=== PATIENT | male | born 1950 | race Caucasian/White ===

== ENCOUNTER 2016-11-21 14:36 | Emergency (ER) | payer OTHER ==
[2016-11-21] MEDS ORDERED: Aspirin Low Dose CHEW TAB* 81 MG PO ONE (15:45)
[2016-11-21 17:12] LABS: Hematocrit 42 % (42-52); Hemoglobin 14.3 g/dl (14.0-18.0); Mean Corpuscular HGB Conc 34 g/dl (31-36); Mean Corpuscular Hemoglobin 31 pg (27-31); Mean Corpuscular Volume 93 fL (80-94); Mean Platelet Volume 8 um3 (7.4-10.4); Red Blood Count 4.57 10^6/ul (4.0-5.4); Red Cell Distribution Width 14 % (10.5-15); White Blood Count 9.8 10^3/ul (3.5-10.8)
[2016-11-21 17:28] LABS: Albumin 4.1 g/dL (3.2-5.2); BUN/Creatinine Ratio 13.7 (8-20); Calcium 9.2 mg/dL (8.6-10.3); EGFR Non-African American 73.1 (>60); Globulin 3.2 g/dL (2-4); Total Bilirubin 0.5 mg/dL (0.2-1.0); Total Protein 7.3 g/dL (6.4-8.9)
[2016-11-21 17:30] LABS: Troponin I 0.01 ng/mL (<0.04)
[2016-11-21 17:34] LABS: Potassium 5.4 mmol/L (3.5-5.0)
--- NOTE | 2016-11-21 17:50 | RAD ---
Indication: Chest pain. Single frontal view of the chest performed at 1652 hours was reviewed. Comparison is made with previous exam dated August 05, 2008. No mediastinal shift is noted. Heart is of normal size and configuration. Lung vance appear clear. IMPRESSION: NO ACTIVE CARDIOPULMONARY DISEASE IS NOTED.
[2016-11-21 19:29] VITALS: BP 128/66
--- NOTE | 2016-11-23 17:29 | ED ---
Madeleine Lew Anna, scribed for Lloyd Gallegos MD on 11/21/16 at 1523 . HPI Chest Pain - HPI Summary HPI Summary: Patient is a 66 y/o male coming to [facility] presenting with intermittent chest pain that began ten days ago. He describes the pain as severity 3/10 and radiating to his left shoulder. He has additionally had intermittent SOB and lightheadedness. He climbs many sets of stairs at work and does evening chores in the barn. Last night after doing his chores, he felt SOB and as if his heart was racing. He felt fine yesterday morning. He has not had any pain related to eating. He is able to sleep at night. The pain is not exacerbated by anything in particular, including palpation. The symptoms were not alleviated by use of an antacid. He has noticed that his foot has fallen asleep more lately than normal. Denies diaphoresis, nausea, edema, neck pain. He denies a history of CAD. His history is significant for rupture of C6-C7, for which he had surgery and will sometimes experience arm numbness after hitting his head on a door. - History of Current Complaint Chief Complaint: EDChestPainROMI Time Seen by Provider: 11/21/16 15:13 Hx Obtained From: Patient Onset/Duration: Started Days Ago Timing: Intermittent Initial Severity: Moderate Current Severity: Moderate Pain Intensity: 3 Pain Scale Used: 0-10 Numeric Chest Pain Radiates To:: Shoulder - Allergy/Home Medications Allergies/Adverse Reactions: Allergies Allergy/AdvReac Type Severity Reaction Status Date / Time Dextromethorphan Allergy Unknown Unknown Verified 06/28/16 14:49 [From Mucinex DM] Reaction Details Guaifenesin [From Mucinex DM] Allergy Unknown Unknown Verified 06/28/16 14:49 Reaction Details Penicillins Allergy Unknown Unknown Verified 06/28/16 14:49 Reaction Details Yellow Dye [From Mucinex DM] Allergy Unknown Unknown Verified 06/28/16 14:49 Reaction Details Gluten Meal Allergy Unknown Verified 06/28/16 14:49 Reaction Details PMH/Surg Hx/FS Hx/Imm Hx Endocrine/Hematology History: Denies: Hx Diabetes Cardiovascular History: Denies: Hx Hypertension, Hx Pacemaker/ICD History: Denies: Hx Renal Disease Sensory History: Denies: Hx Contacts or Glasses, Hx Hearing Aid Opthamlomology History: Denies: Hx Contacts or Glasses Psychiatric History: Denies: Hx Panic Disorder - Surgical History Surgery Procedure, Year, and Place: RIGHT LEG MENISCUS 2009. RUPTURED C6-C7 1987. APPENDIX/TONSILS CHILD Infectious Disease History: No Infectious Disease History: Denies: Traveled Outside the [place] in Last 30 Days - Family History Known Family History: Positive: Other - [place] - Social History Occupation: Employed Full-time Lives: With Family Alcohol Use: Rare Substance Use Type: Reports: None Smoking Status (MU): Never Smoked Tobacco Review of Systems Positive: Palpitations, Chest Pain Positive: Shortness Of Breath Positive: Arthralgia - shoulder pain Neurological: Other - Dizziness Psychological: Normal All Other Systems Reviewed And Are Negative: Yes Physical Exam Triage Information Reviewed: Yes Vital Signs On Initial Exam: Initial Vitals Temp Pulse Resp BP Pulse Ox 98.6 F 73 20 131/85 100 11/21/16 14:38 11/21/16 14:38 11/21/16 14:38 11/21/16 14:38 11/21/16 14:38 Vital Signs Reviewed: Yes Appearance: Positive: Well-Appearing, No Pain Distress Skin: Positive: Warm, Skin Color Reflects Adequate Perfusion, Dry Head/Face: Positive: Normal Head/Face Inspection Eyes: Positive: Normal ENT: Positive: Normal ENT inspection Neck: Positive: Supple, Nontender Respiratory/Lung Sounds: Positive: Clear to Auscultation, Breath Sounds Present Cardiovascular: Positive: RRR Abdomen Description: Positive: Nontender, Soft Bowel Sounds: Positive: Present Musculoskeletal: Positive: Normal Neurological: Positive: Normal Psychiatric: Positive: Affect/Mood Appropriate Diagnostics - Vital Signs Vital Signs Temp Pulse Resp BP Pulse Ox 11/21/16 14:38 98.6 F 73 20 131/85 100 - Laboratory Lab Results: Lab Results 11/21/16 11/21/16 11/21/16 Range/Units 17:00 17:00 17:00 WBC 9.8 (3.5-10.8) 10^3/ul RBC 4.57 (4.0-5.4) 10^6/ul Hgb 14.3 (14.0-18.0) g/dl Hct 42 (42-52) % MCV 93 (80-94) fL MCH 31 (27-31) pg MCHC 34 (31-36) g/dl RDW 14 (10.5-15) % Plt Count 266 (150-450) 10^3/ul MPV 8 (7.4-10.4) um3 Neut % (Auto) 60.3 (38-83) % Lymph % (Auto) 25.9 (25-47) % [place] % (Auto) 8.1 (1-9) % Eos % (Auto) 4.6 (0-6) % Baso % (Auto) 1.1 (0-2) % Absolute Neuts (auto) 5.9 (1.5-7.7) 10^3/ul Absolute Lymphs (auto) 2.5 (1.0-4.8) 10^3/ul Absolute Monos (auto) 0.8 (0-0.8) 10^3/ul Absolute Eos (auto) 0.4 (0-0.6) 10^3/ul Absolute Basos (auto) 0.1 (0-0.2) 10^3/ul Absolute Nucleated RBC 0 10^3/ul Nucleated RBC % 0 Sodium 136 (133-145) mmol/L Potassium 5.4 H (3.5-5.0) mmol/L Chloride 105 (101-111) mmol/L Carbon Dioxide 27 (22-32) mmol/L Anion Gap 4 (2-11) mmol/L BUN 14 (6-24) mg/dL Creatinine 1.02 (0.67-1.17) mg/dL Est GFR ( Amer) 94.0 (>60) Est GFR (Non-Af Amer) 73.1 (>60) BUN/Creatinine Ratio 13.7 (8-20) Glucose 91 (70-100) mg/dL Lactic Acid 0.8 (0.5-2.0) mmol/L Calcium 9.2 (8.6-10.3) mg/dL Total Bilirubin 0.50 (0.2-1.0) mg/dL AST 51 H (13-39) U/L ALT 44 (7-52) U/L Alkaline Phosphatase 59 (34-104) U/L Troponin I 0.01 (<0.04) ng/mL Total Protein 7.3 (6.4-8.9) g/dL Albumin 4.1 (3.2-5.2) g/dL Globulin 3.2 (2-4) g/dL Albumin/Globulin Ratio 1.3 (1-3) 11/21/ Range/Units 18:45 WBC (3.5-10.8) 10^3/ul RBC (4.0-5.4) 10^6/ul Hgb (14.0-18.0) g/dl Hct (42-52) % MCV (80-94) fL MCH (27-31) pg MCHC (31-36) g/dl RDW (10.5-15) % Plt Count (150-450) 10^3/ul MPV (7.4-10.4) um3 Neut % (Auto) (38-83) % Lymph % (Auto) (25-47) % [place] % (Auto) (1-9) % Eos % (Auto) (0-6) % Baso % (Auto) (0-2) % Absolute Neuts (auto) (1.5-7.7) 10^3/ul Absolute Lymphs (auto) (1.0-4.8) 10^3/ul Absolute Monos (auto) (0-0.8) 10^3/ul Absolute Eos (auto) (0-0.6) 10^3/ul Absolute Basos (auto) (0-0.2) 10^3/ul Absolute Nucleated RBC 10^3/ul Nucleated RBC % Sodium (133-145) mmol/L Potassium (3.5-5.0) mmol/L Chloride (101-111) mmol/L Carbon Dioxide (22-32) mmol/L Anion Gap (2-11) mmol/L BUN (6-24) mg/dL Creatinine (0.67-1.17) mg/dL Est GFR ( Amer) (>60) Est GFR (Non-Af Amer) (>60) BUN/Creatinine Ratio (8-20) Glucose (70-100) mg/dL Lactic Acid (0.5-2.0) mmol/L Calcium (8.6-10.3) mg/dL Total Bilirubin (0.2-1.0) mg/dL AST (13-39) U/L ALT (7-52) U/L Alkaline Phosphatase (34-104) U/L Troponin I 0.01 (<0.04) ng/mL Total Protein (6.4-8.9) g/dL Albumin (3.2-5.2) g/dL Globulin (2-4) g/dL Albumin/Globulin Ratio (1-3) Result Diagrams: 11/21/16 17:00 11/21/16 17:00 Lab Statement: Any lab studies that have been ordered have been reviewed, and results considered in the medical decision making process. - Radiology CXR Xray Interpretation: No Acute Changes Radiology Interpretation Completed By: Radiologist - IMPRESSION: NO ACTIVE CARDIOPULMONARY DISEASE IS NOTED. - EKG 1447 Cardiac Rate: NL - 64 bpm EKG Rhythm: Sinus Rhythm ST Segment: Normal Ectopy: None Re-Evaluation - Re-Evaluation First Eval Re-Evaluation Time: 19:09 Change: Unchanged Comment: Discussed results and plan of care with patient. Patient agrees with plan. Chest Pain Course/Dx - Course Course Of Treatment: Mr. Mccabe presented with CP without ecg or lab abnormalities including delayed Trop testing. 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 I believe he is safe to go home and recommended close F/U. Assessment/Plan: EDACS Score: 23 - Diagnoses Provider Diagnoses: Chest pain Discharge - Discharge Plan Condition: Stable Disposition: HOME Patient Education Materials: Chest Pain (ED) Referrals: Rob Corona MD [Primary Care Provider] - Additional Instructions: Call Dr. Corona's office tomorrow morning to follow up. Return to the emergency department for changing or worsening symptoms. The documentation as recorded by the Madeleine camp Anna accurately reflects the service I personally performed and the decisions made by me, Lloyd Gallegos MD.
== END 2016-11-21 19:37 | disposition home or self-care (01) ==
LOC: ED 14:36
DX: R07.9 Chest pain, unspecified (principal); R00.2 Palpitations; R06.02 Shortness of breath; M25.519 Pain in unspecified shoulder
CPT/HCPCS: 36415; 71010; 80053; 83605; 84484; 85025; 93005; 99283; A9270-GY